=== PATIENT | female | born 2000 | race African-American/Black ===

== ENCOUNTER 2021-12-01 11:14 | Emergency (ER) | payer MEDICAID ==
[~2021-12-01] VITALS: Ht 175.3 cm; Wt 85.0 kg
[2021-12-01] MEDS ORDERED: KETOROLAC 30MG/ML VIAL IM ONE (11:45)
[2021-12-01 14:49] LABS: CLARITY URINE CLEAR (CLEAR); COLOR URINE YELLOW (YELLOW); KETONES URINE NEGATIVE (NEGATIVE); LEUKOCYTE ESTERASE URINE TRACE (NEGATIVE); NITRITE URINE NEGATIVE (NEGATIVE); OCCULT BLOOD URINE NEGATIVE (NEGATIVE); PH URINE 7.5 (4.5-8.0); PROTEIN URINE NEGATIVE (NEGATIVE); SPECIFIC GRAVITY URINE 1.024 (1.005-1.030); UROBILINOGEN URINE 0.2 E.U./dL (0.2-1.0)
[2021-12-01] MEDS ORDERED: LIDO700A15 TP (15:35)
[2021-12-01] MEDS ORDERED: CYCL5TAB MT (15:35)
[2021-12-01] MEDS ORDERED: NAPR-1176 MT (15:35)
[2021-12-01] MEDS ORDERED: NITR-87 MT (16:02)
[2021-12-01 16:06] VITALS: BP 142/67
[2021-12-03] MEDS ORDERED: LIDOCAINE 5% PATCH TOP SCH (09:00)
== END 2021-12-01 16:07 | disposition home or self-care (01) ==
LOC: ER 11:14
DX: N30.00 Acute cystitis without hematuria (principal); Z88.0 Allergy status to penicillin
CPT/HCPCS: 81003; 81025; 96372; 99283; J1885

== ENCOUNTER 2022-03-16 14:35 | Emergency (ER) | payer MEDICAID, OTHER ==
[~2022-03-16] VITALS: Ht 175.3 cm; Wt 100.0 kg
[~2022-03-16 14:35] MED LIST: CYCL5TAB MT; LIDO700A15 TP; NAPR-1176 MT; NITR-87 MT
[2022-03-16 14:39] VITALS: BP 130/90
[2022-03-16] MEDS ORDERED: ALBUTEROL (0.083%) 2.5MG/3ML NEB HHN STA (14:45)
[2022-03-16] MEDS ORDERED: METHYLPREDNISOLONE SOD SUCC 125 MG/2 ML VIAL IM STA (14:45)
[2022-03-16] MEDS ORDERED: IPRATROPIUM BROMIDE (0.02%) 0.5MG/2.5ML NEB HHN STA (14:45)
== END 2022-03-16 20:00 | disposition left against medical advice (07) ==
LOC: ER 14:35
DX: R07.89 Other chest pain (principal); J45.909 Unspecified asthma, uncomplicated; Z88.0 Allergy status to penicillin
CPT/HCPCS: 99281

== ENCOUNTER 2023-09-30 16:45 | Emergency (ER) | payer MEDICAID, OTHER ==
[~2023-09-30] VITALS: Ht 175.3 cm; Wt 97.5 kg
[2023-09-30 17:03] VITALS: BP 128/75; PULSE 70; RESP 16; TEMP 98.5; O2SAT 98
[2023-09-30] MEDS ORDERED: NAPR-681 PO (18:28)
[2023-09-30] MEDS ORDERED: HYDR-4001 PO (18:28)
== END 2023-09-30 20:32 | disposition home or self-care (01) ==
LOC: ER 16:45
DX: S62.652A Nondisplaced fracture of middle phalanx of right middle finger, initial encounter for closed fracture (principal); X58.XXXA Exposure to other specified factors, initial encounter; Y93.89 Activity, other specified; Y92.89 Other specified places as the place of occurrence of the external cause; Y99.8 Other external cause status
CPT/HCPCS: 73140; 99283

== ENCOUNTER 2024-08-17 11:13 | Emergency (ER) | payer MEDICAID ==
[~2024-08-17] VITALS: Ht 175.3 cm; Wt 95.3 kg
[~2024-08-17 11:13] MED LIST changes: +HYDR-4001 PO; +NAPR-681 PO
[2024-08-17 12:20] LABS: BASOPHILS % 0.3 % (0.0-2.0); CHLORIDE 106 mEq/L (98-107); DIFFERENTIAL COMMENT 0; EOSINOPHILS % 0.6 % (0.0-5.0); HEMATOCRIT. 38.8 % (36.0-48.0); HEMOGLOBIN. 12.1 g/dL (12.0-16.0); LYMPHOCYTES % 22.8 % (20.0-50.0); MEAN CORPUSCULAR HEMOGLOBIN 24.4 pg (28.0-32.0); MEAN CORPUSCULAR HGB CONC 31.2 g/dL (31.0-37.0); MEAN CORPUSCULAR VOLUME 78.3 fL (81.0-99.0); MEAN PLATELET VOLUME 8.1 fl (7.4-10.4); MONOCYTES % 7.7 % (2.0-8.0); NEUTROPHILS % 68.6 % (40.0-76.0); PLATELET 300 x1000/uL (130-400); POTASSIUM 3.9 mEq/L (3.5-5.1); RED BLOOD CELL COUNT 4.95 mill/uL (4.2-5.4); RED CELL DISTRIBUTION WIDTH 16.4 % (11.6-14.6); SODIUM 140 mEq/L (136-145); WHITE BLOOD COUNT 9.1 x1000/uL (4.5-11.0)
[2024-08-17 12:21] LABS: CALCIUM 9.6 mg/dL (8.7-10.4); CARBON DIOXIDE 29 mEq/L (21-32)
[2024-08-17 12:26] LABS: CREATININE 0.9 mg/dL (0.6-1.0); GLUCOSE 92 mg/dL (70-105); UREA NITROGEN BLOOD 10 mg/dL (9-23)
[2024-08-17] MEDS: METHYLPREDNISOLONE SOD SUCC 125MG/2ML (ACT-O-VIAL) IM NR (15:23)
[2024-08-17] MEDS: IPRATROPIUM BROMIDE (0.02%) 0.5MG/2.5ML NEB HHN NR (15:36)
[2024-08-17 15:37] VITALS: PULSE 86; RESP 20; O2SAT 97
[2024-08-17] MEDS: ALBUTEROL (0.083%) 2.5MG/3ML NEB HHN NR (15:37)
[2024-08-17 16:18] LABS: CLARITY URINE CLEAR (CLEAR); COLOR URINE YELLOW (YELLOW); GLUCOSE URINE NEGATIVE (NEGATIVE); KETONES URINE NEGATIVE (NEGATIVE); LEUKOCYTE ESTERASE URINE NEGATIVE (NEGATIVE); NITRITE URINE NEGATIVE (NEGATIVE); OCCULT BLOOD URINE NEGATIVE (NEGATIVE); PH URINE 7.5 (4.5-8.0); PROTEIN URINE TRACE (NEGATIVE); SPECIFIC GRAVITY URINE 1.026 (1.005-1.030)
[2024-08-17] MEDS ORDERED: ALBU18HF2 IH (16:27)
[2024-08-17] MEDS ORDERED: AZIT250T12 MT (16:27)
[2024-08-17] MEDS ORDERED: ACET-2708 PO (16:27)
[2024-08-17 16:43] VITALS: BP 129/73; PULSE 75; RESP 18; TEMP 36.78072; O2SAT 100
[2024-08-17 16:56] LABS: BACTERIA URINE 2+; RBC URINE 0-2 /hpf (0-2); SQUAMOUS EPITHELIAL CELL URINE 1+ /lpf (RARE/1+); WBC URINE 0-2 /hpf (0-2)
== END 2024-08-17 16:44 | disposition home or self-care (01) ==
LOC: ER 11:24
DX: J20.9 Acute bronchitis, unspecified (principal); J45.909 Unspecified asthma, uncomplicated; Z88.0 Allergy status to penicillin; Z90.89 Acquired absence of other organs; Z20.822 Contact with and (suspected) exposure to COVID-19
CPT/HCPCS: 80048; 81003; 81025; 87430; 85025; 87070; 87804 ×2; 36415; 71045; 94640; 93005; 96372; 99285; 87426; J2919; Z7610 ×3